=== PATIENT | female | born 1950 | race Caucasian/White ===

== ENCOUNTER 2016-05-23 17:36 | Emergency (ER) | payer MEDICARE, OTHER ==
[~2016-05-23 17:36] MED LIST: ABILIFY5 MG PO; AMBIEN10 M1 PO; AMBIEN10 MG PO; ATIVAN1 M2 PO; ATIVAN1 MG PO; CARDIZEM LA360 M1 PO; CARDIZEM LA360 MG PO; CIPROFLOXACIN500 M3 PO; COLACE100 M1 PO; DIPHENOXYLATE-1 EAC1 PO; IBANDRONATE SO150 M1 PO; LEVAQUIN500 M1 PO; METRONIDAZOLE PO; NEXIUM40 M1 PO; NEXIUM40 MG PO; NUCYNTA50 M1 PO; PERCOCET 5-3251 EACH PO; PERCOCET 5/3251 TAB PO; PRISTIQ ER50 MG PO; PRISTIQ50 MG PO; SINGULAIR10 M1 PO; TOLTERODINE TART4 M1 PO; TOPAMAX50 M3 PO; TOPIRAMATE50 MG PO; TRAMADOL HCL50 M2 PO; WELCHOL625 M1 PO; [UNRECOGNIZED DRUG - OTHER]; [UNRECOGNIZED DRUG - OTHER] PO; [UNRECOGNIZED DRUG - REMARK] PO
[2016-05-23] MEDS ORDERED: SYNTHROID50 MC1 PO (18:32)
== END 2016-05-23 18:55 ==
LOC: EDMED 17:36
DX: S20.219A Contusion of unspecified front wall of thorax, initial encounter (principal); I10 Essential (primary) hypertension; Z79.899 Other long term (current) drug therapy; W10.9XXA Fall (on) (from) unspecified stairs and steps, initial encounter; Y92.019 Unspecified place in single-family (private) house as the place of occurrence of the external cause